=== PATIENT | female | born 1995 ===

== ENCOUNTER → 2017-11-10 | Outpatient (CLI) | payer OTHER | LOC: LAB 10:08 | DX: J02.9 Acute pharyngitis, unspecified (principal) | CPT/HCPCS: 87070 ==

== ENCOUNTER → 2017-12-12 | Outpatient (CLI) | payer OTHER ==
[2017-12-13 10:18] LABS: Source CERVICAL
== END ==
LOC: LAB SHORT 13:55 → LAB 13:55
PROVIDERS: Registered Nurse Community Health
DX: Z12.4 Encounter for screening for malignant neoplasm of cervix (principal)
CPT/HCPCS: G0123

== ENCOUNTER 2018-04-08 23:59 | Emergency (ER) | payer OTHER ==
[~2018-04-08] VITALS: Ht 152.4 cm; Wt 59.0 kg
== END 2018-04-09 02:33 | disposition home or self-care (01) ==
LOC: ER 23:59
DX: S93.401A Sprain of unspecified ligament of right ankle, initial encounter (principal); W01.0XXA Fall on same level from slipping, tripping and stumbling without subsequent striking against object, initial encounter
CPT/HCPCS: 73610; 99283-25